=== PATIENT | female | born 1995 | race Caucasian/White ===

== ENCOUNTER 2019-04-17 16:06 | Emergency (ER) | payer OTHER ==
[~2019-04-17] VITALS: Ht 165.1 cm; Wt 78.5 kg
[2019-04-17] MEDS ORDERED: PREN29TA4 PO (16:12)
[2019-04-17 17:53] VITALS: BP 117/73
--- NOTE | 2019-04-18 06:58 | ECGEPIP ---
[facility] - ED Test Date: 2019-04-17 Pat Name: MARTI HEADLEY Department: Room: - Gender: Female Plant Guard: : 1995 Requested By: BURTON Diana Order Number: [id number] Reading MD: Renetta Krishnan Measurements Intervals [place] Rate: 69 P: 14 ID: [id number] QRS: 81 QRSD: 90 T: 38 QT: 376 QTc: 404 Interpretive Statements SINUS RHYTHM No prior Electronically Signed on 04-18-2019 6:57:48 EDT by Renetta Krishnan
== END 2019-04-17 18:32 | disposition home or self-care (01) ==
LOC: M ED 16:06
DX: O99.89 Other specified diseases and conditions complicating pregnancy, childbirth and the puerperium (principal); R07.89 Other chest pain; Z3A.12 12 weeks gestation of pregnancy

== ENCOUNTER 2019-11-02 12:24 | Inpatient (IN) | payer OTHER ==
[~2019-11-02] VITALS: Ht 165.1 cm; Wt 91.6 kg
[~2019-11-02 12:24] MED LIST: PREN29TA4 PO
[2019-11-02 13:35] LABS: HEMATOCRIT 36.5 % (36.0-47.0); HEMOGLOBIN 12.6 g/dl (12.0-15.5); MEAN CORPUSCULAR HEMOGLOBIN 31.3 pg (27.0-33.0); MEAN CORPUSCULAR HGB CONC 34.5 g/dl (32.0-36.5); MEAN CORPUSCULAR VOLUME 90.6 fl (80.0-96.0); PLATELET COUNT, AUTOMATED 229 10^3/uL (150-450); RED BLOOD COUNT 4.03 10^6/uL (4.00-5.40); WHITE BLOOD COUNT 11.6 10^3/uL (4.0-10.0)
[2019-11-02] MEDS: miSOPROStol 25 MCG 1/4 TAB (S0191) SL SCH ×2 (14:06→18:15)
--- NOTE | 2019-11-02 14:15 | HPEPDOC ---
Obstetrical History & Physical General Date of Admission November 02, 2019 at 12:24 Primary Care Physician: A History of Present Illness patient is a 24 yo G1 @ 41wks gestation presents for scheduled IOL for late gestational age. Today without concerns. Chief Complaint: Induction of labor, Other Information Provided By: Patient Age: 24 : 1 Term: 0 Pre-term: 0 Abortions: 0 Livin Care Care: Good Care Dating Final EDC: October 26, 2019 Final EDC for Daily Update: October 26, 2019 Final EDC by: LMP, 1st trimester (US) Past Medical History Past Obstetrical History : Past Obstetrical History: Primgravida GENERAL TELLER History: No pertinent history Past Medical History Medical History denies Surgical History: Denies/None Family History Significant Family History: No pertinent family hx Social History Marital Status: Family situation: Spouse/partner home * Smoker: non-smoker Alcohol: Denies Drugs: denies Imunizations Tdap status: current Influenza Status: current Allergies Coded Allergies: No Known Allergies (Unverified , 04/17/19) Medications Scheduled Prenat 115/Iron Fum/Folic/Dss ( 19 Tablet) 1 Each Tablet, 1 TAB PO DAILY Physical Examination Physical Examination GENERAL: Alert and oriented times three. BREAST: . ABDOMEN: Gravid and non-tender to touch. FETUS: Is vertex (VTX) by sterile vaginal examination (SVE), fetus is vertex (VTX) by Jesus. HEART RATE: Regular rate and rhythm. LUNGS: Clear to auscultation (CTA). EXTREMITIES: No edema/erythema/tenderness. EFW: 3600gm Laboratory Data 24H LABS Laboratory Tests 2 11/02/19 12:34: Serology Scanned Report Hepatitis B Testing 11/02/19 13:00: Nucleated Red Blood Cells % (auto) 0.0 CBC/BMP Laboratory Tests 11/02/19 13:00 Pertinent Laboratoy Data Blood Type: O+ RBC Antibody Screen: Negative HIV: Negative Hepatitis B: Negative Rapid Plasma Reagin: Nonreactive Rubella: Immune Chlamydia/Gonorrhea: Negative Group B Streptococcus: Negative Anatomy Ultrasound Placenta Location: Posterior Normal Anatomy: Yes Placenta Previa: No Vaginal Examination Dilation: None Effacement: 30% Station: -3 Cervical Consistency: Soft Cervical Position: Anterior Presentation: Cephalic presentation Assessment Heart Rate (FHR): 130 Variability: Moderate Accelerations: Positive Decelerations: None Tocometer Contractions: Yes Frequency: irregular Assessment/Plan Assessment Patient is a 24 yo G1 @41wks gestation admitted or IOL for late gestational age. patient counseled on IOL methods. Explained external and internal monitors as needed. Risks of section, infection needing antibiotics, bleeding needing blood transfusion and associated risks, use of forceps or vacuum and associated risks, and episiotomy discussed with patient. Plan Admit and orient. Television Repairer and consent. Diet: regular Group B Streptococcus (GBS) negative. cytotec, jacobson bulb, pitocin, arom as needed for IOL. pelvis adquate for trial of labor. VIRY ESPINO DO November 02, 2019 14:15
--- NOTE | 2019-11-02 19:07 | IPNPDOC ---
Text Note Date of Service The patient was seen on 11/02/19. NOTE patient received cytotec 25mcg x 1. not feeling contractions. vitals: normal NAD fht: 140/mod juanito/pos accel/occasional variable and late decels toco: ctx q 2mins ce: /-3, anterior, medium a/p patient in latent labor. jacobson bulb placed with 80cc placed vaginally. continuous monitor. recheck after jacobson bulb comes out. Korin, VS,David, I+O VS, David, I+O Laboratory Tests 11/02/19 13:00 VIRY ESPINO DO November 02, 2019 19:07
[2019-11-02] MEDS ORDERED: PROMETHAZINE INJ 25 MG/ML VIAL (J2550) IV ONE (19:15)
[2019-11-02] MEDS ORDERED: MORPHINE 10 MG/ML 1ML VIAL (J2270) IM ONE (19:15)
[2019-11-02] MEDS ORDERED: MORPHINE 10 MG/ML 1ML VIAL (J2270) IV ONE (19:15)
[2019-11-02 19:19] VITALS: BP 109/67
[2019-11-02 20:40] VITALS: BP 114/66
[2019-11-02 21:40] VITALS: BP 118/61
[2019-11-02 22:40] VITALS: BP 109/60
[2019-11-02 23:40] VITALS: BP 110/66
[2019-11-03] VITALS (21 sets, daily range): BP systolic 93–126; BP diastolic 53–89
--- NOTE | 2019-11-03 07:29 | IPNPDOC ---
Text Note Date of Service The patient was seen on 11/03/19. NOTE patient jacobson bulb came out around 0200. She is not feeling contraction at this time. vital: normal NAD fht: 140/mod juanito/pos accel/episodic decels toco irregular ctx ce: 3-4/50/-3 a/p patient in latent labor, start pit. recheck 4-6hrs from starting of regular ctx. SRINIVAS, VS,David, I+O VS, David, I+O Laboratory Tests 11/02/19 13:00 Vital Signs Date Time Temp Pulse Resp B/P (MAP) Pulse Ox O2 Delivery O2 Flow Rate FiO2 11/03/19 05:40 67 100/59 (73) 11/03/19 02:40 97.6 18 VIRY ESPINO DO November 03, 2019 07:29
[2019-11-03] MEDS ORDERED: OXYTOCIN DRIP 30 UNITS in IV 1 EA IV SCH (07:30)
[2019-11-03] MEDS: LR 1,000 ML IV SCH ×3 (07:56→15:33)
[2019-11-03] MEDS ORDERED: PROMETHAZINE INJ 25 MG/ML VIAL (J2550) IV ONE (13:00)
[2019-11-03] MEDS ORDERED: MORPHINE 10 MG/ML 1ML VIAL (J2270) IV ONE (13:00)
[2019-11-03] MEDS ORDERED: MORPHINE 10 MG/ML 1ML VIAL (J2270) IM ONE (13:00)
--- NOTE | 2019-11-03 18:31 | IPNPDOC ---
Text Note Date of Service The patient was seen on 11/03/19. NOTE patient is feeling painful contractions on pit 4mu/min. She spontaneously ruptured at around 1330 this afternoon. received IV pain medication shortly after. Vitals: normal NAD fht: 140/mod juanito/no accel/episodic decels toco: not tracing all contraction. CE: /-3 a/p Patient in latent labor. difficulty with tracing contractions. IUPC placed for monitoring. continue to titrate pit to effect. recheck in 6hrs. sooner as indicated. Korin, DO VS,Tebone, I+O VS, Fishbone, I+O Vital Signs Date Time Temp Pulse Resp B/P (MAP) Pulse Ox O2 Delivery O2 Flow Rate FiO2 11/03/19 14:50 76 108/56 (73) 11/03/19 13:11 18 11/03/19 02:40 97.6 VIRY ESPINO DO November 03, 2019 18:31
[2019-11-03] MEDS ORDERED: FENTANYL 2MCG/ML ROPIVACAINE 0.2% IN 0.9% NACL 100ML IVBAG As Ordered ONE (19:29)
[2019-11-03] MEDS ORDERED: FENTANYL/ROPIVACAINE/NACL BAG 100 ML EPIDURAL SCH (20:50)
[2019-11-03] MEDS ORDERED: NALOXONE INJ 0.4MG/1ML VIAL (J2310 PER 1MG) IV PRN (20:50)
[2019-11-03] MEDS ORDERED: ONDANSETRON 4MG/2ML VIAL IV PRN (20:50)
[2019-11-03] MEDS ORDERED: diphenhydrAMINE 50MG/ML VIAL (J1200) IV PRN (20:50)
[2019-11-03] MEDS ORDERED: EPIDURAL/PCA KEYS XX PRN (20:50)
[2019-11-03] MEDS ORDERED: LACTATED RINGER'S 1000 ML IV PRN (20:50)
[2019-11-03] MEDS ORDERED: ePHEDrine SULFATE 25 MG/5 ML(5MG/ML) SYRINGE IV PRN (20:50)
[2019-11-03] MEDS ORDERED: EPIDURAL COMMENT XX SCH (20:50)
[2019-11-03] MEDS ORDERED: REFRIGERATOR IV KEYS XX PRN (20:50)
--- NOTE | 2019-11-04 03:28 | IPNPDOC ---
Text Note Date of Service The patient was seen on 11/04/19. NOTE patient is feeling comfortable with epidural for pain management. pit: 2mU vitals: normal fht:160/min-mod juanito/no accel/late decels toco: ctx q 2-5mins. ce: c/c/+2, +caput a/p patient is in second stage. CAT II tracing. start pushing. Le, DO VS,Fishbone, I+O VS, Fishbone, I+O Vital Signs Date Time Temp Pulse Resp B/P (MAP) Pulse Ox O2 Delivery O2 Flow Rate FiO2 11/03/19 14:50 76 108/56 (73) 11/03/19 13:11 18 11/03/19 02:40 97.6 I&O- Last 24 Hours up to 6 AM 11/04/19 06:00 Intake Total 2000 ml Balance 2000 ml VIRY ESPINO DO November 04, 2019 03:28
[2019-11-04] MEDS ORDERED: FENTANYL 2MCG/ML ROPIVACAINE 0.2% IN 0.9% NACL 100ML IVBAG As Ordered ONE (04:10)
[2019-11-04] MEDS ORDERED: OXYTOCIN DRIP 30 UNITS in IV 1 EA IV SCH (04:37)
[2019-11-04] MEDS ORDERED: MEASLES,MUMPS,RUBELLA VACCINE INJ (MMR-II) (90707) SC SCH (04:45)
[2019-11-04] MEDS ORDERED: RHOGAM 300 MCG (1500 IU) INJ (J2790) IM SCH (04:45)
[2019-11-04] MEDS ORDERED: DOCUSATE SODIUM 100 MG CAP PO PRN (04:45)
[2019-11-04] MEDS ORDERED: DIBUCAINE 1% OINTMENT 30GM TOP PRN (04:45)
--- NOTE | 2019-11-04 04:46 | DNPDOC ---
[facility] Delivery Note Delivery Note DATE OF DELIVERY: 11/04/2019 PREDELIVERY DIAGNOSIS: 41+2/7 weeks' gestation. POST DELIVERY DIAGNOSIS: Delivered. PROCEDURE: Spontaneous vaginal delivery PAINTER MIRROR: Dr. Chiquita Langley DO ANESTHESIA: Epidural ESTIMATED BLOOD LOSS: 250 mL. FINDINGS: 3500 grams, male infant, Score 9/9 DELIVERY SUMMARY: With good maternal effort, baby delivered OA, restituted ROT. Anterior shoulder delivered, followed by posterior shoulder, body followed with ease. Baby placed on maternal abdomen. Cord allowed to stop pulsating. Cord clamped x 2 and cut by FOB. Pitocin bolus started. Placenta delivered spontaneously, appears intact. Fundus massaged firm. Inspection reveals second degree midline l aceration, repaired with 2-0 vicryl in the usual fashion. Baby and mother bonding when I left the room. DO SRINIVAS Langley LUAT N. DO November 04, 2019 04:46
[2019-11-04] MEDS: PRENATAL VITAMINS CHEWABLE TABLET PO SCH (07:29)
[2019-11-04] MEDS: ACETAMINOPHEN TAB 650MG DOSE (2X325MG) PO PRN ×2 (07:30→20:51)
[2019-11-04 08:40] VITALS: BP 123/72
[2019-11-04] MEDS: IBUPROFEN 800 MG TAB PO PRN ×2 (13:24→23:04)
[2019-11-04 18:25] VITALS: BP 117/56
[2019-11-05 06:09] VITALS: BP 113/64
--- NOTE | 2019-11-05 07:00 | IPNPDOC ---
Progress Note Date of Service: November 05, 2019 Day#: 1 Progress Note SUBJECT: Patient is a 24-year-old 1 now Para 1 status post uncomplicated spontaneous vaginal delivery from IOL with post 2nd degree laceration and repair, doing well day # 1. She has been ambulating, voiding spontaneously without issue and tolerating regular diet. Breast feeding without issue. Reports lochia is like a normal period. Patient is ambulating well. [Reports some cramping with . Pain controlled with tylenol. OBJECTIVE: VITAL SIGNS: Within normal limits, afebrile. GENERAL: No acute distress HEENT: MMM BREAST: Nontender, no erythema CARDIOVASCULAR EXAMINATION: RRR RESPIRATORY EXAMINATION: Bilaterally clear ABDOMINAL EXAMINATION: Soft, appropriate tenderness, nondistended, fundus -2 PERINEUM: Intact, minimal lochia EXTREMITIES: no edema, nontender ASSESSMENT: Patient is a 24-year-old 1 now Para 1 status post uncomplicated spontaneous vaginal delivery from IOL with post 2nd degree lacer ation and repair, doing well day # 1. Vitals within normal limits, afebrile, hemodynamically stable with no evidence of infection. PLAN: 1. Discharge to home today. 2. Tylenol and Motrin for pain. 3. Encourage breast feeding and ambulation. 4. Routine PP visit in 6 weeks in clinic. 5. Discussed return precautions at length. VS, I&O, 24H, Fishbone Vital Signs/I&O Vital Signs Date Time Temp Pulse Resp B/P (MAP) Pulse Ox O2 Delivery O2 Flow Rate FiO2 11/05/19 06:09 97.6 80 18 113/64 (80) 11/04/19 08:40 98 Room Air Marla Magaña MD November 05, 2019 07:00
--- NOTE | 2019-11-05 07:02 | DS.PDOC ---
Discharge Summary General Date of Admission November 02, 2019 at 12:24 Date of Discharge 11/05/19 Discharge Summary PROCEDURES PERFORMED DURING STAY: None. ADMITTING DIAGNOSES: 1. Postdates term DISCHARGE DIAGNOSES: 1. Postdates term COMPLICATIONS/CHIEF COMPLAINT: Induction. HISTORY OF PRESENT ILLNESS: see H&P HOSPITAL COURSE: Patient had IOL with uncomplicated . Bleeding like menses. Tolerating diet. Passing flatus. Able to ambulate. Pain tolerable with pain medications. Urinating without difficulty. DISCHARGE MEDICATIONS: Please see below. ALLERGIES: Please see below. PHYSICAL EXAMINATION ON DISCHARGE: VITAL SIGNS: Please see below. GENERAL: No acute distress HEENT: MMM BREAST: Nontender, no erythema CARDIOVASCULAR EXAMINATION: RRR RESPIRATORY EXAMINATION: Bilaterally clear ABDOMINAL EXAMINATION: Soft, appropriate tenderness, nondistended, fundus -2 EXTREMITIES: no edema, nontender LABORATORY DATA: Please see below. IMAGING: none PROGNOSIS: Good ACTIVITY: Pelvic rest. DIET: Regular DISCHARGE PLAN: Home DISPOSITION: . DISCHARGE INSTRUCTIONS: 1. See attached. ITEMS TO FOLLOWUP ON ON OUTPATIENT: 1. 6wks in clinic. DISCHARGE CONDITION: Stable. TIME SPENT ON DISCHARGE: Greater than 10 minutes. Vital Signs/I&Os Vital Signs Date Time Temp Pulse Resp B/P (MAP) Pulse Ox O2 Delivery O2 Flow Rate FiO2 11/05/19 06:09 97.6 80 18 113/64 (80) 11/04/19 08:40 98 Room Air Discharge Medications Scheduled Prenat 115/Iron Fum/Folic/Dss ( 19 Tablet) 1 Each Tablet, 1 TAB PO DAILY, (Reported) Allergies Coded Allergies: No Known Allergies (Unverified , 04/17/19) Marla Magaña MD November 05, 2019 07:02
[2019-11-05] MEDS ORDERED: IBUP80TA PO (07:03)
[2019-11-05] MEDS ORDERED: ACET1TAB55 PO (07:03)
[2019-11-05] MEDS ORDERED: DOCU100C16 PO (07:03)
[2019-11-05] MEDS ORDERED: DIBU10OI TOP (07:03)
[2019-11-05] MEDS: PRENATAL VITAMINS CHEWABLE TABLET PO SCH (08:14)
[2019-11-05] MEDS: IBUPROFEN 800 MG TAB PO PRN ×2 (08:15→16:09)
[2019-11-05] MEDS: ACETAMINOPHEN TAB 650MG DOSE (2X325MG) PO PRN (14:13)
== END 2019-11-05 16:45 | disposition home or self-care (01) | DRG 807 ==
LOC: M LDI 12:24 → M OBS 11-04 08:27
PROVIDERS: ADMIT Obstetrics & Gynecology; ATTEND Obstetrics & Gynecology
PROC: 3E0P7VZ Introduction of Hormone into Female Reproductive, Via Natural or Artificial Opening (ICD-10-PCS; 2019-11-02)
PROC: 3E033VJ Introduction of Other Hormone into Peripheral Vein, Percutaneous Approach (ICD-10-PCS; 2019-11-03)
PROC: 10E0XZZ Delivery of Products of Conception, External Approach (ICD-10-PCS; principal; 2019-11-04)
PROC: 0KQM0ZZ Repair Perineum Muscle, Open Approach (ICD-10-PCS; 2019-11-04)
DX: O48.0 Post-term pregnancy (principal); Z37.0 Single live birth; Z3A.41 41 weeks gestation of pregnancy; O70.1 Second degree perineal laceration during delivery

== ENCOUNTER 2020-02-26 07:09 | Day surgery (SDC) | payer OTHER ==
[~2020-02-26] VITALS: Ht 165.1 cm; Wt 84.2 kg
[~2020-02-26 07:09] MED LIST changes: +ACET1TAB55 PO; +DIBU10OI TOP; +DOCU100C16 PO; +IBUP80TA PO; +LR 1,000 ML IV ONE; +birth control PO
[2020-02-26 07:46] LABS: HEMATOCRIT 42.4 % (36.0-47.0); HEMOGLOBIN 14.6 g/dl (12.0-15.5); MEAN CORPUSCULAR HEMOGLOBIN 31.2 pg (27.0-33.0); MEAN CORPUSCULAR HGB CONC 34.4 g/dl (32.0-36.5); MEAN CORPUSCULAR VOLUME 90.6 fl (80.0-96.0); PLATELET COUNT, AUTOMATED 252 10^3/uL (150-450); RED BLOOD COUNT 4.68 10^6/uL (4.00-5.40); WHITE BLOOD COUNT 5.9 10^3/uL (4.0-10.0)
[2020-02-26] MEDS ORDERED: propofoL 200 MG/20 ML VIAL As Ordered ONE (07:59)
[2020-02-26] MEDS ORDERED: fentaNYL 100 MCG/2 ML INJECTION (J3010) As Ordered ONE (07:59)
[2020-02-26] MEDS ORDERED: MIDAZOLAM INJ 2MG/2ML VIAL (J2250 PER 1MG) As Ordered ONE (08:00)
[2020-02-26] MEDS ORDERED: LIDOCAINE 2% 100MG/5ML SDV (FOR ANES.) As Ordered ONE (08:00)
[2020-02-26 08:05] LABS: BLOOD UREA NITROGEN 11 MG/DL (7-18); CALCIUM LEVEL 9.2 MG/DL (8.5-10.1); CARBON DIOXIDE LEVEL 26 MEQ/L (21-32); CHLORIDE LEVEL 110 MEQ/L (98-107); CREATININE FOR GFR 1.01 MG/DL (0.55-1.30); GLOMERULAR FILTRATION RATE > 60.0 (>60); GLUCOSE, FASTING 83 MG/DL (70-100); HCG, SERUM QUANTITATIVE < 1.0 MIU/ML; POTASSIUM SERUM 4.2 MEQ/L (3.5-5.1); SODIUM LEVEL 140 MEQ/L (136-145)
[2020-02-26] MEDS ORDERED: ONDANSETRON 4MG/2ML VIAL As Ordered ONE (08:07)
[2020-02-26] MEDS ORDERED: BUPIVACAINE HCL 0.5% 10ML VIAL As Ordered ONE (08:40)
[2020-02-26] MEDS ORDERED: ACETAMINOPHEN 650 MG SUPP As Ordered ONE (08:41)
[2020-02-26] MEDS ORDERED: LIDOCAINE 1% SDV 30ML VIAL As Ordered ONE (09:03)
[2020-02-26] MEDS ORDERED: dexameTHASONE 4 MG/ML 1ML VIAL (J1100 PER 1MG) As Ordered ONE (09:21)
[2020-02-26] MEDS ORDERED: BUPIVACAINE HCL 0.25% 10ML VIAL As Ordered ONE (09:25)
[2020-02-26] MEDS ORDERED: KETOROLAC 60MG 2ML VIAL As Ordered ONE (09:36)
[2020-02-26] MEDS ORDERED: fentaNYL 100 MCG/2 ML INJECTION (J3010) IV PRN (10:30)
[2020-02-26] MEDS ORDERED: oxyCODONE 5MG TAB PO PRN (10:30)
[2020-02-26] MEDS ORDERED: ONDANSETRON 4MG/2ML VIAL IV PRN (10:30)
[2020-02-26] MEDS ORDERED: LR 1,000 ML IV SCH (10:30)
[2020-02-26] MEDS ORDERED: KETOROLAC 30 MG/ML 1ML VIAL IV PRN (10:45)
[2020-02-26 12:00] VITALS: BP 127/77
--- NOTE | 2020-03-16 10:37 | RO ---
DATE OF OPERATION: 02/26/2020 PREOPERATIVE DIAGNOSIS: Revision of episiotomy. POSTOPERATIVE DIAGNOSIS: Revision of episiotomy. OPERATION PROPOSED: Revision of episiotomy. OPERATION PERFORMED: Revision of episiotomy. ANESTHESIA: LMA plus local anesthetic for intraperitoneal procedures. ESTIMATED BLOOD LOSS: Less than 10 mL. SURGEON: Dr. Ronaldo Giles DIRECT MARKETING ANALYST: Siva King MD PROCEDURE: After adequate time out prepped and draped in the lithotomy position. We had previously marked out the area of concern. Bladder was drained for 150 mL of clear urine. The identified areas were at the fourchette with granulation tissue on the right side and ingrown stitch on left side. Perineorrhaphy was performed from the apex down to the fourchette. This was removed and excised freshening up the edges. Using 3-0 Vicryl and J339 we brought the capsule together and the muscles together after which we used a 4-0 Monocryl to complete the midline area. After that we put in Marcaine 0.25% 5 mL into the site. With the instrument and pad count the procedure was completed and the patient was taken to recovery in good condition. ANTELMO
== END 2020-02-26 12:07 | disposition home or self-care (01) ==
LOC: M SDC 07:09
PROVIDERS: ATTEND Obstetrics & Gynecology
DX: O99.73 Diseases of the skin and subcutaneous tissue complicating the puerperium (principal); N90.89 Other specified noninflammatory disorders of vulva and perineum; R06.83 Snoring; Z79.3 Long term (current) use of hormonal contraceptives
CPT/HCPCS: 36415; 56800; 80048; 84702; 85027; 88302; J1100; J1885; J2405; J3010

== ENCOUNTER 2021-02-28 07:44 | Emergency (ER) | payer OTHER ==
[~2021-02-28] VITALS: Ht 165.1 cm; Wt 82.6 kg
[~2021-02-28 07:44] MED LIST changes: -DIBU10OI TOP; +DIBU28OI2 TOP; -LR 1,000 ML IV ONE
[2021-02-28 07:45] VITALS: BP 129/71
[2021-02-28] MEDS ORDERED: ZYRTTAB8 PO (07:50)
[2021-02-28] MEDS ORDERED: IBUPROFEN 600MG TAB PO ONE (08:35)
[2021-02-28] MEDS ORDERED: AUGMENTIN 875 MG TAB PO ONE (08:35)
[2021-02-28] MEDS ORDERED: PSEU120T19 PO (08:48)
[2021-02-28] MEDS ORDERED: AUGM875T28 PO (08:48)
== END 2021-02-28 08:56 | disposition home or self-care (01) ==
LOC: M ED 07:44
DX: H66.91 Otitis media, unspecified, right ear (principal); R09.81 Nasal congestion; Z79.899 Other long term (current) drug therapy; Z79.3 Long term (current) use of hormonal contraceptives